=== PATIENT | female | born 1990 | race Caucasian/White ===

== ENCOUNTER 2022-09-26 01:43 | Emergency (ER) | payer BC, SELFPAY ==
[2022-09-26] VITALS (16 sets, daily range): BP systolic 116–147; BP diastolic 74–103; PULSE 63–125; RESP 13–24; TEMP 36.8; O2SAT 95–100
--- NOTE | 2022-09-26 02:10 | PC.NURSE ---
Pt persistent on getting out of bed/stretcher, redirected mult times back to stretcher, discussed POC, given call light.
--- NOTE | 2022-09-26 02:17 | ED.GENADULT ---
HPI - General Adult General Chief complaint: Overdose <Heladio Miller MD - Last Filed: 09/26/22 07:07> Stated complaint: OD <Heladio Miller MD - Last Filed: 09/26/22 07:07> Time Seen by Provider: 09/26/22 01:49 <Heladio Miller MD - Last Filed: 09/26/22 07:07> History of Present Illness HPI narrative: 32-year-old female presenting the emergency department for evaluation of increased anxiety. Patient reports she was at a friend's and took some Xanax. Friend was concerned that she overdosed so they called EMS. Upon arrival to the scene by EMS patient was agitated but alert. Upon arrival to the emergency department patient was further agitated. Does admit to having history of substance abuse. Patient denied wanting to seek rehab and patient denies homicidal, suicidal ideation and declined to speak the crisis counselor. <Heladio Miller MD - Last Filed: 09/26/22 07:07> Related Data Allergies/adverse reactions: Allergies Allergy/AdvReac Type Severity Reaction Status Date / Time No Known Allergies Allergy Verified 09/26/22 02:11 <Heladio Miller MD - Last Filed: 09/26/22 07:07> Review of Systems Review of Systems: CONSTITUTIONAL: Denies fever, chills, or sweats. EYES: Denies visual changes, redness, or discharge. ENT: Denies rhinorrhea, congestion, sore throat, or otalgia. CARDIOVASCULAR: Denies chest pain, palpitations, or edema. RESPIRATORY: Denies cough or dyspnea. GASTROINTESTINAL: Denies abdominal pain, nausea, vomiting, or diarrhea. GENITOURINARY: Denies dysuria or hematuria. SKIN: Denies rash or itching. MUSCULOSKELETAL: Denies back pain, joint pain, or myalgia. NEUROLOGIC: Denies headache, numbness, or weakness. PSYCHIATRIC: Anxiety <Heladio Miller MD - Last Filed: 09/26/22 07:07> PMFSH Social History Social History: Social History Substance use type: former substance user, sedatives, opiates, painkillers and unknown <Heladio Miller MD - Last Filed: 09/26/22 07:07> Exam Narrative: APPEARANCE: Well appearing, no pain, no distress, well-nourished. HEAD: normocephalic, atraumatic. EYES: PERRLA/EOMI, conjunctivae clear. NOSE: Normal no drainage EARS:TMS clear with good light reflex. THROAT: Pharynx clear, no exudate. NECK: Supple. No adenopathy, no masses. RESPIRATORY: Airway patent, respirations nonlabored. Clear to auscultation bilaterally, no rales, rhonchi, wheezing. CARDIOVASCULAR: Regular rate and rhythm without murmurs rubs or gallops. ABDOMINAL: Soft, nontender, nondistended, normal bowel sounds MUSCULOSKELETAL: Moves all extremities. Strength/ROM intact, No edema, No calf tenderness. NEURO: Alert. Cranial nerves II through XII intact. Grossly intact SKIN: Warm, dry. Normal Color <Heladio Miller MD - Last Filed: 09/26/22 07:07> Course Course Emergency Course: Patient is awaiting care coordination due to her being homeless. Patient declined to speak to the crisis counselor and declined information pertaining to substance abuse treatment. <Heladio Miller MD - Last Filed: 09/26/22 07:07> Patient is awaiting care coordination due to her being homeless. Patient declined to speak to the crisis counselor and declined information pertaining to substance abuse treatment. Care turned over to myself at shift change seen by myself initial H&P patient will wake up but then immediately was fell back asleep wait for sobriety for discharge [address] Care turned over to Dr. Norwood at shift change <Raúl Ambrosio DO - Last Filed: 09/26/22 13:20> Patient is awaiting care coordination due to her being homeless. Patient declined to speak to the crisis counselor and declined information pertaining to substance abuse treatment. Care turned over to myself at shift change seen by myself initial H&P patient will wake up but then immediately was fell back asleep wait for sobriety for discharge [address] Care turned over to Dr. Norwood at shift change <Linda
[2022-09-26] MEDS: LORazepam INJ (*CRX) 2 MG/ML VIAL 1 MG IM (02:26)
--- NOTE | 2022-09-26 07:48 | PC.NURSE ---
CARE COORDINATION IN THE ED TO ATTEMPT TO EVALUATED THE PT. PT IS STILL NOT ALERT ENOUGH TO ANSWER QUESTIONS APPROPRIATELY. CARE COORDINATION WILL FOLLOW UP.
--- NOTE | 2022-09-26 15:42 | PC.NURSE ---
PT AWAKE AND AMBULATED TO BATHROOM AND THEN ROOM 15. PT UPRIGHT WAITING FOR RE EVALUATION BY PHYSICIAN AND CARE COORDINATION WILL SPEAK WITH PATIENT WELL. PT HAS PHONE NUMBER FOR A RIDE HOME WHEN THE TIME COMES.
--- NOTE | 2022-09-26 17:04 | PCCCNOTE ---
Late entry: 0700 Referral received for homeless resources. Tried to meet with patient but patient is to sleepy to have discussion, will not open eyes. Dr. Miller at bedside will wake for his voice but will fall back to sleep. Attempted to speak with patient with bedside MARYLIN nSyder present but unsuccessful. Will follow up. [facility] Homeless Hotline-no answer left message [address] Action- [phone]- no answer due to 's holiday [facility]-left message Call for Help-left message, [facility]- no beds call in one week, [facility] no answer unable to leave a [facility] [place] [facility] [facility] [place] -Walk in available Printed Homeless resources and wrote notes on resource guide for patient Called drug rehab that take Medicaid [facility] -no female bed for awhile- patient needs to call intake to get on waitlist [facility] - left message [facility] - Patient needs to call back on Thursday for screening [facility]-need to to speak w/ the patient [place] -no female beds over the weekend-patient should call intake next week Substance Abuse/Rehab resources printed for patient with above notes. MARYLIN Snyder called this foster care worker at 1540- Patient has woken up and able to go over resources. Dr. Norwood is talking with the patient and is ready for foster care worker to talk with her. Met with patient in room ED 15, she states that she does not want rehab but is willing to take the handouts and resources with her. She mainly wants resources for a primary doctor so she can get treatment for anxiety. Provided patient with a list of primary doctors that take her insurance from the portal. Also provided counseling resources Patient does not have a place to stay, she states that she has a camper but unsure was put down correctly while she was in retirement. She plans to call a friend Norberto to pick her up today and go to the camper. Provided patient with homeless correction resources if the camper did not work out. Patient attempts to call Norberto multiple times on house phone to no avail. Patient only has a tank top on, foster care worker provides with flannel shirt. Patient is comfortable using the bus system and needs to get to the [place]. Bus tokens provided and pamphlet with bus times. Patient denies any further care coordination needs. MARYLIN Snyder at bedside to review dc instructions.
== END 2022-09-26 17:37 | disposition home or self-care (01) ==
PROVIDERS: Emergency Provider Emergency Medicine
DX: F19.10 Other psychoactive substance abuse, uncomplicated (principal); Z59.00 Homelessness unspecified
CPT/HCPCS: 96372; 99283; J2060; J2310